=== PATIENT | male | born 1990 | race Caucasian/White ===

== ENCOUNTER 2016-10-05 17:10 | Emergency (ER) | payer OTHER ==
[2016-10-05] MEDS ORDERED: ONDANSETRON 4 MG VIAL ONE (23:38)
[2016-10-05] MEDS ORDERED: KETOROLAC 30 MG/ML VIAL ONE (23:39)
[2016-10-05] MEDS ORDERED: SODIUM CHLORIDE 0.9% 1,000 ML ONE (23:39)
[2016-10-06] MEDS ORDERED: Ibuprofen 400 MG TAB ONE (00:14)
== END 2016-10-06 00:45 | disposition home or self-care (01) ==
LOC: ER 17:10
CPT/HCPCS: 36415; 74176; 80053; 81001; 83690; 85025; 87804; 87880; 96374; 96375